=== PATIENT | male | born 2000 | race African-American/Black ===

== ENCOUNTER → 2020-03-19 11:07 | Outpatient (CLI) | payer OTHER, MEDICAID, SELFPAY ==
--- NOTE | 2020-03-19 11:09 | DI.RAD.S_ITS ---
PROCEDURE: XR HAND LT MIN 3V INDICATIONS: L HAND PAIN TECHNIQUE: 3 views of the hand(s) acquired. COMPARISON: None. FINDINGS: Bones: No acute fracture or dislocation. Old healed fracture involving ulnar styloid base is seen. Carpal bones are normally aligned. No suspicious bony lesions. Soft tissues: No suspicious soft tissue calcifications. IMPRESSION: No acute left hand fracture or dislocation. Old healed ulnar styloid base fracture. Dictated by: Hayden Bhatia M.D. on 03/19/2020 at 11:23 Approved by: Hayden Bhatia M.D. on 03/19/2020 at 11:26
== END ==
PROVIDERS: Referring Provider Physician Assistant; Visit Provider Physician Assistant
DX: M79.642 Pain in left hand (principal)
CPT/HCPCS: 73130

== ENCOUNTER → 2021-10-25 11:55 | Outpatient (CLI) | payer OTHER, MEDICAID, SELFPAY ==
[2021-10-25 13:10] LABS: Add Manual Diff / Slide Review NO; Basophils Absolute Auto 0 /uL (0-100); Basophils Percent Auto 0.8 % (0-2); Eosinophils Absolute Auto 800 /uL (0-450); Eosinophils Percent Auto 12.6 % (2-4); Hematocrit 39.3 % (41-53); Hemoglobin 12.9 g/dL (13.5-17.5); Lymphocytes Absolute Auto 2500 /uL (1100-4500); Lymphocytes Percent Auto 41.3 % (25-40); Mean Corpuscular HGB Conc 32.7 % (30-36); Mean Corpuscular Hemoglobin 26.9 PG (26-34); Mean Corpuscular Volume 82.1 fL (80-100); Monocytes Absolute Auto 600 /uL (0-900); Monocytes Percent Auto 9.7 % (3-14); Neutrophils Absolute Auto 2200 /uL (1500-7000); Neutrophils Percent Auto 35.6 % (50-75); Platelet Count 204 X10^3/uL (150-400); Red Blood Cell Count 4.79 X10^6/uL (4.5-5.9); Red Cell Distribution Width 14.8 % (11.6-14.8); White Blood Cell Count 6.1 X10^3/uL (4.5-11.0)
[2021-10-25 13:59] LABS: Alanine Aminotransferase 18 IU/L (<50); Albumin Globulin Ratio 1.7 (1.0-2.8); Alkaline Phosphatase 41 U/L (38-126); Aspartate Aminotransferase 22 IU/L (17-59); Bilirubin Total 0.4 mg/dL (0.2-1.3); Blood Urea Nitrogen 11 mg/dL (9-20); Calcium 9.5 mg/dL (8.4-10.2); Carbon Dioxide 29 mmol/L (22-32); Chloride 103 mmol/L (98-107); Estimated Glomerular Filt Rate > 60.0 mL/min (>60); Globulin 2.9 g/dL (1.7-4.1); Glucose 94 mg/dL (70-100); HEMOLYSIS < 15 (0-50); Potassium 4.4 mmol/L (3.4-5.1); Sodium 142 mmol/L (137-145); Total Protein 7.9 g/dL (6.3-8.2)
[2021-10-25 14:40] LABS: Vitamin B12 699 pg/mL (239-931)
[2021-10-25 15:46] LABS: Vitamin D 25 Hydroxy (D3) 26.1 ng/mL (30.0-100.0)
== END ==
PROVIDERS: PCP Family Medicine; Referring Provider Family Medicine; Visit Provider Family Medicine
DX: F41.8 Other specified anxiety disorders (principal)
CPT/HCPCS: 36415; 80053; 82306; 82607; 84443; 85025

== ENCOUNTER 2022-07-12 23:57 | Emergency (ER) | payer OTHER, MEDICAID, SELFPAY ==
[2022-07-13 00:10] VITALS: BP 123/63; PULSE 67; RESP 18; TEMP 36.8; O2SAT 100; BMI 21.2
== END 2022-07-13 01:15 | disposition left against medical advice (07) ==
PROVIDERS: Emergency Provider Emergency Medicine; PCP Family Medicine
CPT/HCPCS: 99281

== ENCOUNTER → 2023-08-03 16:26 | Outpatient (CLI) | payer OTHER, MEDICAID, SELFPAY ==
[2023-08-03 18:17] LABS: Influenza A - CEPHEID Flu A NEGATIVE (NEGATIVE); Influenza B - CEPHEID Flu B NEGATIVE (NEGATIVE); Respiratory Syncytial Virus Negative (Negative)
[2023-08-03 18:18] LABS: COVID-19 CEPHEID 4-PLEX PCR Negative (Negative)
== END ==
PROVIDERS: PCP Family Medicine; Visit Provider Physician Assistant Medical
DX: R68.89 Other general symptoms and signs (principal)
CPT/HCPCS: 0241U

== ENCOUNTER → 2023-08-03 17:02 | Outpatient (CLI) | payer OTHER, MEDICAID, SELFPAY ==
--- NOTE | 2023-08-03 17:03 | DI.RAD.S_ITS ---
PROCEDURE: XR CHEST 2V INDICATIONS: Cough and SOB TECHNIQUE: 2 views of the chest were acquired. COMPARISON: None. FINDINGS: Surgical changes and devices: None. Lungs and pleura: Lungs are clear. No pleural effusions or pneumothorax. Mediastinum: Mediastinal contours are normal. Heart size is normal. Bones and chest wall: No suspicious bony abnormalities. Soft tissues appear unremarkable. IMPRESSION: No acute cardiopulmonary abnormality is seen. Dictated by: Henry Knott M.D. on 08/03/2023 at 17:38 Approved by: Henry Knott M.D. on 08/03/2023 at 17:39
== END ==
PROVIDERS: PCP Family Medicine; Referring Provider Physician Assistant Medical; Visit Provider Physician Assistant Medical
DX: R06.02 Shortness of breath (principal); R68.89 Other general symptoms and signs
CPT/HCPCS: 0241U; 71046; 87880

== ENCOUNTER 2024-02-21 11:23 | Emergency (ER) | payer OTHER, MEDICAID, SELFPAY ==
[2024-02-21 11:33] VITALS: BP 140/88; PULSE 81; RESP 18; TEMP 36.8; O2SAT 98; BMI 23.1
--- NOTE | 2024-02-21 13:17 | ED.SKABFB ---
HPI - Skin/Abscess/Foreign Bdy General Chief complaint: Skin/Abscess/Foreign Body Stated complaint: poss something stuck in his throat Time Seen by Provider: 02/21/24 12:18 Source: patient Mode of arrival: Ambulatory Limitations: no limitations History of Present Illness HPI narrative: Otherwise healthy 23-year-old male here for evaluation of what he thinks is potentially something stuck in the right side of the back of his throat. He is noticed it for the past couple days. It occurred before he went to work 1 day. He was not eating anything at the time. It states that it occasionally hurts when he swallows. He was still able to swallow. Has never had anything stuck in his throat before. Has been having chronic sinus issues for the past several months. Had an appointment with ENT a couple months ago and has another appointment about a month from now. No problems breathing. Has not tried anything for symptoms prior to arrival. Related Data Allergies Allergy/AdvReac Type Severity Reaction Status Date / Time escitalopram AdvReac Mild nausea, Verified 12/03/23 11:44 burry vision Review of Systems Review of Systems Narrative: See HPI Patient History Medical History Vitamin D2 deficiency Microcytic anemia Depression with anxiety Family History (Updated 10/28/21 @ 22:05 by Yolis Hunter) Mother Hypertension Sister Autism Grandfather Hypertension History of heart disease Social History Smoking Status: Current some day smoker Smoking Status: Current some day smoker tobacco type: vaping alcohol intake frequency: holidays/special occasions only Substance Use Type: marijuana Exam Initial Vital Signs Initial Vital Signs: Vital Signs Temperature 98.2 F 02/21/24 11:33 Pulse Rate 81 02/21/24 11:33 Respiratory Rate 18 02/21/24 11:33 Blood Pressure 140/88 02/21/24 11:33 Pulse Oximetry 98 02/21/24 11:33 Oxygen Delivery Method Room Air 02/21/24 11:33 HENMT Head: normal to inspection and normocephalic Mouth: moist mucous membranes Throat: posterior oropharynx normal and postnasal drainage Resp Effort & Inspection: normal respiratory effort Auscultation: clear to auscultation bilaterally Course Vital Signs Vital signs: Vital Signs - 8 hr 02/21/24 11:33 Temperature 98.2 F Pulse Rate 81 Respiratory Rate 18 Blood Pressure 140/88 Pulse Oximetry 98 Oxygen Delivery Method Room Air MDM - Skin/Abscess/Foreign Bdy MDM Narrative Medical decision making narrative: Physical exam today is not consistent with strep throat. I have low suspicion for retained foreign body. I suspect that it is viral pharyngitis or potentially from his postnasal drip. No indication for antibiotics. We discussed topical things that he can try such as Maalox. Lab him follow-up with ENT. He was given return precautions. He expressed understanding and agreement. Discharge Plan Departure Patient Disposition: Home Clinical Impression: Pharyngitis Instructions: Sore Throat Activity Restrictions/Additional Instructions: I do recommend that you keep your follow-up appointment with the ear nose and throat doctor. You can try the oral medications such as Maalox like we discussed. Also the topical medicines such as Chloraseptic sprays and Cepacol drops. Return to the emergency department for new symptoms. Referrals: Landen Dowell DO [Primary Care Provider] - Stand Alone Forms: Patient Portal/API
[2024-02-21 13:31] VITALS: BP 138/86; PULSE 79; RESP 16; O2SAT 99
== END 2024-02-21 13:31 | disposition home or self-care (01) ==
PROVIDERS: Emergency Provider Emergency Medicine; PCP Family Medicine
DX: J02.9 Acute pharyngitis, unspecified (principal)

== ENCOUNTER 2024-02-21 20:38 | Emergency (ER) | payer OTHER, MEDICAID, SELFPAY ==
[2024-02-21 20:44] VITALS: BP 128/79; PULSE 74; RESP 16; TEMP 36.7; O2SAT 98; BMI 23.1
[2024-02-21 23:37] VITALS: BP 131/86
[2024-02-21 23:38] VITALS: PULSE 63; O2SAT 100
--- NOTE | 2024-02-21 23:50 | ED.RECABL ---
HPI - Recheck/Abnormal Lab/Rx General Chief Complaint: Recheck/Abnormal Lab/Rx Stated Complaint: something in throat, causing anxiety Time Seen by Provider: 02/21/24 23:50 Source: patient Mode of arrival: Ambulatory History of Present Illness HPI narrative: 23-year-old male with history of anxiety, intermittent throat pain symptoms, prior otolaryngology evaluation, unclear specific diagnosis, no known cancers, no known warts or vocal cord lesions, seen earlier today in the ED with similar symptoms, unremarkable oropharyngeal exam, advised to take oral antacid, has not started the omeprazole prescription thus far, feeling increasingly anxious, nearly in panic. No problems with swallowing his secretions, nor with moving his neck. No injury or trauma new activities. No fevers or chills. He and mother enquiring about imaging Related Data Previous Rx's Medication Instructions Recorded hydroxyzine HCl 50 mg tablet 50 mg PO BID PRN anxiety #20 tabs 02/22/24 Allergies Allergy/AdvReac Type Severity Reaction Status Date / Time escitalopram AdvReac Mild nausea, Verified 02/21/24 20:53 burry vision Review of Systems Review of Systems Narrative: see HPI Patient History Medical History Vitamin D2 deficiency Microcytic anemia Depression with anxiety Family History (Updated 10/28/21 @ 22:05 by Yolis Hunter) Mother Hypertension Sister Autism Grandfather Hypertension History of heart disease Social History Smoking Status: Current some day smoker Smoking Status: Current some day smoker tobacco type: vaping alcohol intake frequency: holidays/special occasions only Substance Use Type: marijuana Exam Narrative Exam Narrative: GENERAL: Well-developed patient, in mild distress. HEAD: Atraumatic. Normocephalic. EYES: Pupils equal round and reactive. Extraocular motions intact. No scleral icterus. No injection or drainage. ENT: Nose without bleeding, purulent drainage. Throat without erythema, tonsillar hypertrophy or exudate. Airway patent. NECK: Trachea midline. Non tender CARDIOVASCULAR: Regular rate and rhythm without murmurs, gallops, or rubs. RESPIRATORY: Clear to auscultation. Breath sounds equal bilaterally. No wheezes, rales, or rhonchi. GASTROINTESTINAL: Abdomen soft, non-tender, nondistended. EXTREMITIES: No edema or joint tenderness. BACK: Nontender without deformity or crepitance. No flank tenderness. NEURO: AOx3. SKIN: No rash or erythema of visible areas Initial Vital Signs Initial Vital Signs: Vital Signs Temperature 98.1 F 02/21/24 20:44 Pulse Rate 74 02/21/24 20:44 Respiratory Rate 16 02/21/24 20:44 Blood Pressure 128/79 02/21/24 20:44 Pulse Oximetry 98 02/21/24 20:44 Oxygen Delivery Method Room Air 02/21/24 20:44 Course Orders Ordered: ED Orders 02/22/24 00:02 XR soft tissue neck Stat Discontinued Medications Hydroxyzine HCl (Hydroxyzine Hcl 25 Mg Tablet) 50 mg PO NOW ONE Stop: 02/22/24 00:03 Last Admin: 02/22/24 00:08 Dose: 50 mg Documented By: SHIRLEY Pantoprazole Sodium (Pantoprazole Dr 20 Mg Tablet) 20 mg PO NOW ONE Stop: 02/22/24 00:03 Last Admin: 02/22/24 00:08 Dose: 20 mg Documented By: SHIRLEY Vital Signs Vital signs: Vital Signs - 8 hr 02/21/24 20:44 02/21/24 23:37 02/21/24 23:38 Temperature 98.1 F Pulse Rate 74 63 Respiratory Rate 16 Blood Pressure 128/79 131/86 Pulse Oximetry 98 100 Oxygen Delivery Method Room Air 02/22/24 00:00 02/22/24 02:01 Temperature Pulse Rate 69 69 Respiratory Rate 18 Blood Pressure 122/71 Pulse Oximetry 100 99 Oxygen Delivery Method Room Air Room Air MDM - Recheck/Abnormal Lab/Rx Imaging Data XR soft tissue Neck series: Radiologist's Impression: [address] [address] XRay Report Signed Patient: Mario Muniz MR#: [id number] : 2000 Acct:[id number] Age/Sex: 23 / M Date of Service: 02/22/24 Loc: ED Accession Number: [id number] Procedure: XR soft tissue neck Ordering Provider: Luis Clifton MD PROCEDURE: XR SOFT TISSUE NECK INDICATIONS: FB sensation TECHNIQUE: 2 views of the neck were acquired. COMPARISON: None. FINDINGS: Airway: The airway appears patent. Soft tissues: Prevertebral soft tissues are normal in thickness. The epiglottis and aryepiglottic folds appear normal. No soft tissue gas. No radiopaque foreign body demonstrated. Bones: No suspicious bony lesions. Visualized cervical spine is normally aligned. IMPRESSION: No foreign body seen. Dictated by: Ruben Mckenna M.D. on 02/22/2024 at 1:42 Approved by: Ruben Mckenna M.D. on 02/22/2024 at 1:43 [facility] Narrative Medical decision making narrative: 23-year-old male with anxiety, history of suspected TESS, not yet starting most recent prescription for omeprazole, ED evaluation earlier today with unremarkable exam, on my exam patient seems to be controlling secretions well, normal phonation, normal range of motion of neck, oropharyngeal exam unremarkable. Suspect by history that he may have some throat symptoms that are GE reflux associated. Concur with trial of antacid advised prior. They are asking about throat/neck imaging. I do not feel comfortable ordering CT soft tissue neck imaging, due to the significant radiation in a young healthy male patient. Could consider x-ray soft tissue neck series, though I feel this is likely very low yield, however patient mother feel that this might help his anxiety. X-ray soft tissue neck series ordered. P.o. Protonix dose, also p.o. hydroxyzine for anxiety. X-ray soft tissue neck showed no obvious foreign body, soft tissues unremarkable, my wet read. Formal radiology report also negative, patient given printed copy of the x-ray report. Improved symptoms on Protonix and after hydroxyzine, he would like to try further hydroxyzine, prescription sent to his pharmacy. Improved symptoms, home with mother, trial of hydroxyzine as an outpatient for now, advised to feel intake omeprazole as previously prescribed, follow up with Otolaryngology as planned. Return precautions discussed Discharge Plan Departure Patient Disposition: Home Clinical Impression: Sore throat, Anxiety Activity Restrictions/Additional Instructions: Foreign body neck sensation, prescribed omeprazole antacid that is not yet been taken, further anxiety about possible causes, requesting imaging of the neck. We did discuss CT soft tissue neck imaging but did not seem worth the risks at this time of ionizing radiation. Plain film x-ray soft tissue was performed, significantly less radiation, no obvious foreign body, though it is possible to miss foreign body material that is non radiopaque. Symptoms most consistent with reflux cause of your symptoms. Follow up with ENT otolaryngology as planned, consider repeat direct visualization exam again. Regarding your anxiety, hydroxyzine was given, tolerated well, further prescription to try as an outpatient sent to your pharmacy. Feel the omeprazole previous prescription antacid intake regularly as prescribed. Follow up with your ear nose throat doctor as planned. Return earlier to this/nearest emergency department for any change worsening symptoms or any concerns prior Prescriptions: New hydroxyzine HCl 50 mg tablet 50 mg PO BID PRN (Reason: anxiety) Qty: 20 0RF Referrals: Landen Dowell DO [Primary Care Provider] - Stand Alone Forms: Patient Portal/API
[2024-02-22] VITALS: PULSE 69; O2SAT 100
--- NOTE | 2024-02-22 00:02 | DI.RAD.S_ITS ---
PROCEDURE: XR SOFT TISSUE NECK INDICATIONS: FB sensation TECHNIQUE: 2 views of the neck were acquired. COMPARISON: None. FINDINGS: Airway: The airway appears patent. Soft tissues: Prevertebral soft tissues are normal in thickness. The epiglottis and aryepiglottic folds appear normal. No soft tissue gas. No radiopaque foreign body demonstrated. Bones: No suspicious bony lesions. Visualized cervical spine is normally aligned. IMPRESSION: No foreign body seen. Dictated by: Ruben Mckenna M.D. on 02/22/2024 at 1:42 Approved by: Ruben Mckenna M.D. on 02/22/2024 at 1:43
[2024-02-22] MEDS: PANTOPRAZOLE DR 20 MG TABLET PO (00:08)
[2024-02-22] MEDS: hydrOXYzine HCL 25 MG TABLET 50 MG PO (00:08)
[2024-02-22 02:01] VITALS: BP 122/71; PULSE 69; RESP 18; O2SAT 99
== END 2024-02-22 02:11 | disposition home or self-care (01) ==
PROVIDERS: Emergency Provider Emergency Medicine; PCP Family Medicine
DX: J02.9 Acute pharyngitis, unspecified (principal); F41.9 Anxiety disorder, unspecified
CPT/HCPCS: 70360; 99281; 99283; A9270

== ENCOUNTER 2024-12-04 21:53 | Emergency (ER) | payer OTHER, SELFPAY ==
[2024-12-04 22:00] VITALS: BP 135/80; PULSE 78; RESP 18; TEMP 36.9; O2SAT 98; BMI 22.4
--- NOTE | 2024-12-04 22:03 | DI.RAD.S_ITS ---
PROCEDURE: XR CHEST 1V INDICATIONS: Chest Pain TECHNIQUE: One view of the chest was acquired. COMPARISON: [facility], CR, XR CHEST 2V, 08/03/2023, 17:12. FINDINGS: Surgical changes and devices: None. Lungs and pleura: Lungs are clear. No pleural effusions or pneumothorax. Mediastinum: Mediastinal contours appear normal. Heart size is normal. Bones and chest wall: No suspicious bony lesions. Overlying soft tissues appear unremarkable. IMPRESSION: No acute cardiopulmonary abnormality is seen. Dictated by: Ruben Mckenna M.D. on 12/04/2024 at 23:00 Approved by: Ruben Mckenna M.D. on 12/04/2024 at 23:00
--- NOTE | 2024-12-04 22:08 | EKG_ITS ---
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
[2024-12-05] VITALS (8 sets, daily range): BP systolic 146–150; BP diastolic 88–95; PULSE 65–97; RESP 16–22; O2SAT 95–100
[2024-12-05 01:41] LABS: Add Manual Diff / Slide Review NO; Basophils Absolute Auto 0 /uL (0-100); Basophils Percent Auto 0.4 % (0-2); Eosinophils Absolute Auto 100 /uL (0-450); Eosinophils Percent Auto 0.8 % (2-4); Hemoglobin 12.9 g/dL (13.5-17.5); Lymphocytes Absolute Auto 3400 /uL (1100-4500); Lymphocytes Percent Auto 48.9 % (25-40); Mean Corpuscular Hemoglobin 27.2 PG (26-34); Mean Corpuscular Volume 80.1 fL (80-100); Monocytes Absolute Auto 600 /uL (0-900); Monocytes Percent Auto 8.5 % (3-14); Neutrophils Absolute Auto 2800 /uL (1500-7000); Neutrophils Percent Auto 41.4 % (50-75); Platelet Count 210 X10^3/uL (150-400); Red Blood Cell Count 4.74 X10^6/uL (4.5-5.9); Red Cell Distribution Width 14.2 % (11.6-14.8); White Blood Cell Count 6.9 X10^3/uL (4.5-11.0)
[2024-12-05 01:43] LABS: INR 1.2 (0.9-1.3); Prothrombin Time 13.2 SECONDS (9.4-12.5)
[2024-12-05 01:46] LABS: PTT Partial Thromboplastin Tim 36 SECONDS (25.1-36.5)
[2024-12-05 01:48] LABS: Alanine Aminotransferase 20 IU/L (<50); Albumin 4.8 g/dL (3.5-5.0); Albumin Globulin Ratio 1.7 (1.0-2.8); Alkaline Phosphatase 42 U/L (38-126); Aspartate Aminotransferase 24 IU/L (17-59); BUN Creatinine Ratio 10.6 (6-22); Blood Urea Nitrogen 11 mg/dL (9-20); Calcium 9.4 mg/dL (8.4-10.2); Carbon Dioxide 26 mmol/L (22-32); Chloride 103 mmol/L (98-107); Creatine Kinase 79 U/L (55-170); Estimated Glomerular Filt Rate > 60 mL/min (>60); Globulin 2.9 g/dL (1.7-4.1); Glucose 107 mg/dL (70-99); HEMOLYSIS < 15 (0-50); Lipase 54 U/L (23-300); Potassium 3.6 mmol/L (3.4-5.1); Sodium 139 mmol/L (137-145); Total Protein 7.7 g/dL (6.3-8.2)
[2024-12-05 01:59] LABS: NT-proBNP (BNP-Adult 18+) < 20 pg/mL (<125); Troponin I < 0.012 ng/mL (0.01-0.034)
--- NOTE | 2024-12-05 03:02 | ED.ARRPALP ---
HPI - Arrhythmia/Palpitations General Chief Complaint: Arrhythmia/Palpitations Stated Complaint: IRREG BEAT X 5-6 ,WEAKNESS Time Seen by Provider: 12/05/24 03:02 Source: patient, RN notes reviewed and old records reviewed Mode of arrival: Ambulatory Limitations: no limitations History of Present Illness HPI narrative: 23-year-old male reported history of anxiety, tobacco use who presents with complaint of palpitations for the past week and increased sensation for the past 2 days. Patient states has not really had similar symptoms in the past. Notes little bit of shortness of breath and a little bit of chest discomfort when he has these episodes states that he also feels very anxious and feels like those might be symptoms of anxiety. Has had some mild nausea but no vomiting. No diaphoresis. No syncope. No issues with bowel movements or urination, no new swelling in extremities. Patient states no daily medications but was prescribed medication for a tobacco cessation several months ago has not been taking it regularly occasionally takes it. No prior surgeries. Patient states had reaction to escitalopram but no other allergies. Does vape tobacco daily, rare alcohol, uses marijuana no other recreational drugs. Does drink energy drinks and caffeine most days. Primary care is Dr. Dowell he has a follow up appointment on the . He was accompanied by his mother. No long distance travel. Family history mom recently had a ZIO patch for possible arrhythmia, no other reported cardiac history. Related Data Previous Rx's Medication Instructions Recorded hydroxyzine HCl 50 mg tablet 50 mg PO BID PRN anxiety #20 tabs 02/22/24 sertraline 25 mg tablet 25 mg PO DAILY #60 tabs 03/28/24 omeprazole 20 mg capsule,delayed 20 mg PO BID #1 cap 04/18/24 release bupropion HCl 150 mg 24 hr tablet, 150 mg PO QAM #30 tabs 10/08/24 extended release Allergies Allergy/AdvReac Type Severity Reaction Status Date / Time escitalopram AdvReac Mild nausea, Verified 10/08/24 09:30 burry vision Review of Systems Review of Systems ROS Unobtainable: All systems reviewed & are unremarkable except as noted in HPI and below Patient History Medical History Encounter for smoking cessation counseling Numbness and tingling Chronic GERD Throat fullness Generalized anxiety disorder with panic attacks Vitamin D2 deficiency Microcytic anemia Depression with anxiety Family History Mother Hypertension Sister Autism Grandfather Hypertension History of heart disease Social History Smoking Status: Current every day smoker Smoking Status: Current every day smoker tobacco type: vaping alcohol intake frequency: holidays/special occasions only Exam Narrative Exam Narrative: GENERAL: Alert and oriented x three, male in mild distress HEENT: Head normocephalic, atraumatic, EOMI, pupils reactive, face symmetric, moist mucous membranes NECK: Supple, full range of motion CARDIOVASCULAR: Regular rate and rhythm without murmurs, rubs or gallops. JVD. No edema bilateral lower extremities. RESPIRATORY: Breath sounds equal bilaterally, no wheezes rales or rhonchi. No tachypnea or accessory muscle use. ABDOMEN: Soft, nontender. Normoactive bowel sounds all 4 quadrants. No guarding or rebound, rigidity, no mass : No CVA tenderness EXTREMITIES: Normal range of motion, no clubbing or edema. Neurovascularly intact NEUROLOGICAL: Cranial nerves II through XII grossly intact. Moving all extremities SKIN: Warm, dry, no petechiae, no rashes or lesions. Initial Vital Signs Initial Vital Signs: Vital Signs Temperature 98.4 F 12/04/24 22:00 Pulse Rate 78 12/04/24 22:00 Respiratory Rate 18 12/04/24 22:00 Blood Pressure 135/80 12/04/24 22:00 Pulse Oximetry 98 12/04/24 22:00 Oxygen Delivery Method Room Air 12/04/24 22:00 Course Orders Ordered: ED Orders 12/04/24 22:03 XR chest 1V Stat Complete Blood Count AUTO DIFF Stat Comprehensive Metabolic Panel Stat Lipase Stat Magnesium Stat NT-proBNP (BNP-Adult 18+) Stat PTT Partial Thromboplastin Raul Stat Prothrombin Time INR Stat Troponin & CK Cardiac Panel Stat EKG-12 Lead Stat Discontinued Medications Aspirin (Aspirin 81 Mg Chew Tab) 324 mg PO NOW ONE Stop: 12/04/24 22:04 Last Admin: 12/04/24 22:15 Dose: Not Given Documented By: RAJESH Vital Signs Vital signs: Vital Signs - 8 hr 12/04/24 22:00 12/05/24 01:19 12/05/24 01:30 Temperature 98.4 F Pulse Rate 78 97 H 74 Respiratory Rate 18 20 Blood Pressure 135/80 Pulse Oximetry 98 100 100 Oxygen Delivery Method Room Air 12/05/24 01:34 12/05/24 01:34 12/05/24 02:00 Temperature Pulse Rate 65 65 Respiratory Rate 20 20 Blood Pressure 150/95 H Pulse Oximetry 98 98 Oxygen Delivery Method Room Air 12/05/24 02:30 12/05/24 03:00 12/05/24 03:30 Temperature Pulse Rate 72 69 67 Respiratory Rate 20 22 16 Blood Pressure Pulse Oximetry 95 96 96 Oxygen Delivery Method 12/05/24 03:34 Temperature Pulse Rate Respiratory Rate Blood Pressure 146/88 H Pulse Oximetry Oxygen Delivery Method MDM - Arrhythmia/Palpitations Lab Data 12/05/24 01:20 12/05/24 01:20 Labs: Lab Results 12/05/24 Range/Units 01:20 WBC 6.9 (4.5-11.0) X10^3/uL RBC 4.74 (4.5-5.9) X10^6/uL Hgb 12.9 L (13.5-17.5) g/dL Hct 38.0 L (41-53) % MCV 80.1 (80-100) fL MCH 27.2 (26-34) PG MCHC 34.0 (30-36) % RDW 14.2 (11.6-14.8) % Plt Count 210 (150-400) X10^3/uL Neut % (Auto) 41.4 L (50-75) % Lymph % (Auto) 48.9 H (25-40) % [place] % (Auto) 8.5 (3-14) % Eos % (Auto) 0.8 L (2-4) % Baso % (Auto) 0.4 (0-2) % Neut # (Auto) 2800 (1618-3029) /uL Lymph # (Auto) 3400 (1243-3314) /uL [place] # (Auto) 600 (0-900) /uL Eos # (Auto) 100 (0-450) /uL Baso # (Auto) 0 (0-100) /uL PT 13.2 H (9.4-12.5) SECONDS INR 1.2 (0.9-1.3) APTT 36 (25.1-36.5) SECONDS Sodium 139 (137-145) mmol/L Potassium 3.6 (3.4-5.1) mmol/L Chloride 103 (98-107) mmol/L Carbon Dioxide 26 (22-32) mmol/L BUN 11 (9-20) mg/dL Creatinine 1.04 (0.66-1.25) mg/dL Estimated GFR > 60 (>60) mL/min BUN/Creatinine Ratio 10.6 (6-22) Glucose 107 H (70-99) mg/dL Calcium 9.4 (8.4-10.2) mg/dL Magnesium 2.0 (1.6-2.3) mg/dL Total Bilirubin 1.0 (0.2-1.3) mg/dL AST 24 (17-59) IU/L ALT 20 (<50) IU/L Alkaline Phosphatase 42 (38-126) U/L Total Creatine Kinase 79 (55-170) U/L Troponin I < 0.012 (0.01-0.034) ng/mL NT-Pro-B Natriuret Pep < 20 (<125) pg/mL Total Protein 7.7 (6.3-8.2) g/dL Albumin 4.8 (3.5-5.0) g/dL Globulin 2.9 (1.7-4.1) g/dL Albumin/Globulin Ratio 1.7 (1.0-2.8) Lipase 54 (23-300) U/L ECG Data Attestation: I personally reviewed and interpreted this ECG as follows: Prior ECG tracings: not available for review Interpretation: Sinus rhythm rightward axis. Rate of 63 AR 158 QRS of 138 QTC 448. No priors for comparison. [facility] Narrative Medical decision making narrative: EKG shows sinus rhythm rightward axis. No priors for comparison. Labs show normal white count and hemoglobin of 12.9 similar in October of 2021, platelets are 210. INR is 1.2 electrolytes, BUN creatinine are normal range glucose is 107 LFTs are negative, troponins less than 0.012 with a BNP of less than 20. Lipase is 54. Chest x-ray shows no acute change. 23-year-old male with intermittent episodes of irregular palpitations. Patient does not have any major changes on EKG, workup today is overall reassuring. Patient does not high-risk for pulmonary embolism. Does drink energy drinks which might be contributing. Patient has follow up with primary care on the discussed possibly following up for ZIO patch if persistent symptoms and return precautions. Did evp general counsel patient to decrease caffeine intake to see if this helps as well. Discharge Plan Departure Patient Disposition: Home Clinical Impression: Palpitations Instructions: DI for Palpitations Activity Restrictions/Additional Instructions: Follow up with your primary care appointment, he can reach out to primary care to see if they can set you up with a ZIO patch. I have recommended that you decrease your caffeine intake to see if this helps. Please return if you have new or worsening symptoms, worsening chest pain, shortness of breath, passing out, new swelling of your extremities, diaphoresis or sweatiness, vomiting, black or bloody stools or other new or concerning changes. Prescriptions: No Action sertraline 25 mg tablet 25 mg PO DAILY Qty: 60 1RF Rx Instructions: Increase to 2 tabs daily after two weeks if needed. omeprazole 20 mg capsule,delayed release(DR/EC) 20 mg PO BID Qty: 1 0RF bupropion HCl 150 mg tablet extended release 24 hr 150 mg PO QAM Qty: 30 0RF hydroxyzine HCl 50 mg tablet 50 mg PO BID PRN (Reason: anxiety) Qty: 20 0RF Referrals: Landen Dowell DO [Primary Care Provider] - Stand Alone Forms: Patient Portal/API/Survey
== END 2024-12-05 03:36 | disposition home or self-care (01) ==
PROVIDERS: Emergency Provider Emergency Medicine; PCP Family Medicine
DX: R00.2 Palpitations (principal); R06.02 Shortness of breath; R07.9 Chest pain, unspecified; F17.290 Nicotine dependence, other tobacco product, uncomplicated
CPT/HCPCS: 36415; 71045; 80053; 82550; 83690; 83735; 83880; 84484; 85025; 85610; 85730; 93005; 99283; 99284

== ENCOUNTER → 2024-12-24 11:10 | Outpatient (CLI) | payer OTHER, SELFPAY | LOC: CAR 11:11 | PROVIDERS: PCP Family Medicine; Referring Provider Family Medicine; Visit Provider Family Medicine | DX: R00.2 Palpitations (principal) | CPT/HCPCS: 93242 ==